=== PATIENT | female | born 1965 | race Native Hawaiian/Other Pacific Islander ===

== ENCOUNTER 2020-01-28 15:33 | Emergency (ER) | payer BC ==
[~2020-01-28] VITALS: Ht 154.9 cm; Wt 88.9 kg
[2020-01-28] MEDS ORDERED: LISI10TA11 PO (16:30)
[2020-01-28 18:32] VITALS: BP 156/75; TEMP 98.9
== END 2020-01-28 18:32 | disposition home or self-care (01) ==
LOC: ED 15:33
DX: J02.9 Acute pharyngitis, unspecified (principal); Z20.828 Contact with and (suspected) exposure to other viral communicable diseases
CPT/HCPCS: 86308; 87502; 87635; 87651; 99283; U0003